=== PATIENT | male | born 1975 | race African-American/Black ===

== ENCOUNTER 2017-06-30 20:10 | Emergency (ER) | payer MEDICAID, OTHER ==
[~2017-06-30] VITALS: Ht 185.4 cm; Wt 75.0 kg
[~2017-06-30 20:10] MED LIST: DILANTIN; ZOLOFT
[2017-06-30] MEDS ORDERED: PHENYTOIN SODIUM EXTENDED 100MG CAPSULE PO ONE (21:00)
[2017-06-30 21:32] LABS: BASOPHILS % 1.1 % (0.0-2.0); EOSINOPHILS % 1.6 % (0.0-5.0); HEMATOCRIT. 39.9 % (42.0-52.0); HEMOGLOBIN. 13.8 g/dL (14.0-18.0); LYMPHOCYTES % 38.6 % (20.0-50.0); MEAN CORPUSCULAR HEMOGLOBIN 34.7 pg (28.0-32.0); MEAN CORPUSCULAR VOLUME 100.2 fL (80.0-94.0); MEAN PLATELET VOLUME 7.9 fl (7.4-10.4); MONOCYTES % 9.4 % (2.0-8.0); NEUTROPHILS % 49.3 % (40.0-76.0); PLATELET 175 x1000/uL (130-400); RED BLOOD CELL COUNT 3.98 mill/uL (4.7-6.1); RED CELL DISTRIBUTION WIDTH 12.9 % (11.6-14.6)
[2017-06-30 21:34] LABS: CHLORIDE 112 mEq/L (98-107)
[2017-06-30 21:49] LABS: ETHANOL BLOOD 384 mg/dL
[2017-07-01 03:02] VITALS: BP 129/79
== END 2017-07-01 03:06 | disposition home or self-care (01) ==
LOC: ER 20:10
DX: R56.9 Unspecified convulsions (principal); E87.0 Hyperosmolality and hypernatremia; F17.200 Nicotine dependence, unspecified, uncomplicated; Z91.14 Patient's other noncompliance with medication regimen
CPT/HCPCS: 36415; 80053; 80185; 83880; 85025; 99284; G0482; Z7610

== ENCOUNTER 2017-09-20 18:59 | Emergency (ER) | payer MEDICAID, OTHER ==
[~2017-09-20] VITALS: Ht 172.7 cm; Wt 65.0 kg
[2017-09-20 19:06] VITALS: BP 116/71
== END 2017-09-20 20:30 | disposition left against medical advice (07) ==
LOC: ER 18:59
DX: Z53.21 Procedure and treatment not carried out due to patient leaving prior to being seen by health care provider (principal)

== ENCOUNTER 2019-09-16 23:26 | Emergency (ER) | payer MEDICAID ==
[~2019-09-16] VITALS: Ht 177.8 cm; Wt 73.0 kg
[2019-09-17] MEDS ORDERED: PHENYTOIN SODIUM EXTENDED 100MG CAPSULE PO ONE ×2 (02:15)
[2019-09-17] MEDS ORDERED: CLONIDINE 0.2MG TABLET PO ONE (02:15)
[2019-09-17 03:01] VITALS: BP 170/92
== END 2019-09-17 03:04 | disposition home or self-care (01) ==
LOC: ER 23:26
DX: R56.9 Unspecified convulsions (principal); F17.290 Nicotine dependence, other tobacco product, uncomplicated
CPT/HCPCS: 36415; 80185; 82962; 93005; 99284

== ENCOUNTER 2021-04-19 22:21 | Emergency (ER) | payer MEDICAID, OTHER ==
[~2021-04-19] VITALS: Ht 185.4 cm; Wt 87.0 kg
[2021-04-19] MEDS ORDERED: SODIUM CHLORIDE 0.9% 1,000 ML IV ONE (23:00)
[2021-04-19 23:32] LABS: BASOPHILS % 1.2 % (0.0-2.0); CHLORIDE 111 mEq/L (98-107); EOSINOPHILS % 1.2 % (0.0-5.0); HEMATOCRIT. 37.5 % (42.0-52.0); HEMOGLOBIN. 12.7 g/dL (14.0-18.0); MEAN CORPUSCULAR HEMOGLOBIN 33.2 pg (28.0-32.0); MEAN CORPUSCULAR VOLUME 98.1 fL (80.0-94.0); MEAN PLATELET VOLUME 7.3 fl (7.4-10.4); MONOCYTES % 8.4 % (2.0-8.0); NEUTROPHILS % 55.2 % (40.0-76.0); PLATELET 433 x1000/uL (130-400); RED BLOOD CELL COUNT 3.83 mill/uL (4.7-6.1); RED CELL DISTRIBUTION WIDTH 15.1 % (11.6-14.6)
[2021-04-19 23:39] LABS: ETHANOL BLOOD 257 mg/dL
[2021-04-19 23:52] LABS: CARBAMAZEPINE < 0.5 ug/mL (4-12); PHENOBARBITAL < 2.1 ug/mL (15.0-40.0); VALPROIC ACID < 3.0 ug/mL (50-100)
[2021-04-20] MEDS ORDERED: PHENYTOIN SODIUM 1,000 MG in SODIUM CHLORIDE 0.9% 100 ML IV ONE (01:15)
[2021-04-20 01:40] VITALS: BP 141/102
== END 2021-04-20 04:11 | disposition home or self-care (01) ==
LOC: ER 22:21
DX: F10.129 Alcohol abuse with intoxication, unspecified (principal); Y90.8 Blood alcohol level of 240 mg/100 ml or more; R41.82 Altered mental status, unspecified
CPT/HCPCS: 36415; 80053; 80156; 80165; 80184; 80185; 80320; 85025; 93005; 96365; 99284; J1165; J7030; J7050; G0480

== ENCOUNTER 2022-07-27 00:13 | Emergency (ER) | payer MEDICAID, OTHER ==
[~2022-07-27] VITALS: Ht 180.3 cm; Wt 88.0 kg
[2022-07-27 00:19] VITALS: BP 151/65
[2022-07-27 00:50] LABS: BASOPHILS % 0.7 % (0.0-2.0); EOSINOPHILS % 2.8 % (0.0-5.0); HEMOGLOBIN. 13.2 g/dL (14.0-18.0); LYMPHOCYTES % 32.2 % (20.0-50.0); MEAN CORPUSCULAR HEMOGLOBIN 33.8 pg (28.0-32.0); MEAN CORPUSCULAR VOLUME 99.8 fL (80.0-94.0); MEAN PLATELET VOLUME 7.4 fl (7.4-10.4); NEUTROPHILS % 58.3 % (40.0-76.0); PLATELET 303 x1000/uL (130-400); RED CELL DISTRIBUTION WIDTH 14.7 % (11.6-14.6)
[2022-07-27 00:59] LABS: CHLORIDE 108 mEq/L (98-107)
[2022-07-27] MEDS ORDERED: TETANUS, DIPHTHERIA, PERTUSSIS VAC/PF 0.5ML (>10YR OLD) IM ONE ×2 (02:00→06:15)
[2022-07-27] MEDS ORDERED: PHENYTOIN SODIUM EXTENDED 100MG CAPSULE PO ONE (02:00)
[2022-07-27 02:16] LABS: ETHANOL BLOOD 373 mg/dL
[2022-07-27] MEDS ORDERED: BO1 TP (05:47)
[2022-07-27] MEDS ORDERED: PHENYTOIN SODIUM EXTENDED 100MG CAPSULE PO NR (06:15)
== END 2022-07-27 06:25 | disposition home or self-care (01) ==
LOC: ER 00:13
DX: S01.81XA Laceration without foreign body of other part of head, initial encounter (principal); T51.0X1A Toxic effect of ethanol, accidental (unintentional), initial encounter; I63.9 Cerebral infarction, unspecified; W18.39XA Other fall on same level, initial encounter; Y93.89 Activity, other specified; Y92.89 Other specified places as the place of occurrence of the external cause; Y99.8 Other external cause status
CPT/HCPCS: 12011; 36415; 70450; 80053; 80185; 80320; 85025; 90471; 90715; 99285; Z7610; G0480